=== PATIENT | male | born 1945 | race Caucasian/White ===

== ENCOUNTER → 2017-04-19 | Outpatient (CLI) | payer MEDICARE, MEDICAID ==
[~2017-04-19] MED LIST: ASPIRIN EC81 M1 PO; ATENOLOL 25 MG25 M1 PO; DALIRESP500 MCG PO; FERROUS SULFAT325 M1 PO; GLUCOPHAGE1000 MG PO; IMDUR 30 MG TAB30 M1 PO; LASIX 20 MG TAB20 MG PO; NITROGLYCERIN0.4 MG SL; OXYCONTIN20 M1 PO; PERCOCET 5-3251 EACH PO; PREDNISONE 2.52.5 M1 PO; PRILOSEC40 MG PO; RANITIDINE 150150 M1 PO; SENNA CONCENTR8.6 MG PO; SEREVENT DISKU50 MCG IH; ZOCOR40 MG PO
[2017-04-19 09:59] LABS: ABSOLUTE EOSINOPHILS 0.2 thou/uL (0.0-0.7); ABSOLUTE LYMPHOCYTES 1.9 thou/uL (0.8-5.3); ABSOLUTE MONOCYTES 0.6 thou/uL (0.0-1.2); ABSOLUTE NEUTROPHILS 3.1 thou/uL (1.6-8.1); BASOPHILS 0.7 %; EOSINOPHILS 3.6 %; HEMATOCRIT 34.4 % (42.0-52.0); HEMOGLOBIN 11.4 gm/dL (14.0-18.0); MCH 30.4 pg (26.0-34.0); MCHC 33.2 g/dL (28.0-37.0); MCV 91.6 fL (80.0-100.0); MONOCYTES 9.6 %; MPV 7.6 fl. (7.2-11.1); NUCLEATED RBCS 0 /100WBC; PLATELET COUNT* 202 thou/uL (150-400); POLYS 54.1 %; RBC 3.76 mil/uL (4.50-6.00); RDW-CV 14.1 % (10.5-14.5); WBC 5.8 thou/uL (4.0-11.0)
[2017-04-19 10:08] LABS: CALCIUM 8.8 mg/dL (8.5-10.1); POTASSIUM 4.5 mmol/L (3.5-5.1)
== END ==
LOC: M.CT 09:26
PROVIDERS: Radiology Radiation Oncology
DX: J84.10 Pulmonary fibrosis, unspecified (principal); J98.11 Atelectasis; M81.0 Age-related osteoporosis without current pathological fracture; J43.8 Other emphysema; M25.78 Osteophyte, vertebrae; I65.22 Occlusion and stenosis of left carotid artery; I70.0 Atherosclerosis of aorta; R91.8 Other nonspecific abnormal finding of lung field; E07.9 Disorder of thyroid, unspecified; Z85.89 Personal history of malignant neoplasm of other organs and systems; Z98.890 Other specified postprocedural states; Z85.21 Personal history of malignant neoplasm of larynx

== ENCOUNTER → 2017-04-24 | Outpatient (CLI) | payer MEDICARE, MEDICAID ==
--- NOTE | 2017-05-05 13:19 | ONC ---
[place] [address] RADIATION ONCOLOGY NOTE Name: SAFIA MIKE Room: [facility]#: [id number] Admission: 04/24/17 Attend Phys: Dylan Solano MD Discharge: Date of : 49 Report #: [id number] THIS REPORT FOR: //name// CC: Dylan Conklin MD DATE OF PROCEDURE: 04/24/2017 REFERRING PHYSICIANS: Jennifer العلي MD, Dr. Najera, Dr. Buckley and Gopal Conklin MD [facility] phone is [phone]. PRIMARY SITE AND HISTOPATHOLOGY: The patient received radiation therapy in combination with Erbitux for a stage JERI, T3 N2 M0, squamous cell carcinoma of the supraglottic larynx. The patient completed radiation treatments on 10/10/2012. PROCEDURE: Nasopharyngolaryngoscopy. FINDINGS: On nasopharyngolaryngoscopy without the use of viscous lidocaine since the patient has indicated that he has an ALLERGY TO "BOBO." The nasopharyngolaryngoscope was introduced in the left nostril. There were no visible lesions in the nasopharynx. There were no visible lesions in the posterior pharynx. There were no visible lesions in the supraglottic larynx. The true vocal cords were normally mobile bilaterally without any visible lesions. There was no evidence of head and neck cancer. Thank you for allowing me to participate in the care of this patient. <ELECTRONICALLY SIGNED> By: Dylan Solano MD 05/05/17 1319 1049 [id number] Solano MD /nt
--- NOTE | 2017-05-05 13:37 | ONC ---
[place] [address] RADIATION ONCOLOGY NOTE Name: SAFIA MIKE Room: [facility]#: [id number] Admission: 04/24/17 Attend Phys: Dylan Solano MD Discharge: Date of : 49 Report #: [id number] THIS REPORT FOR: //name// CC: Dylan Buckley MD DATE OF SERVICE: 04/24/2017 REFERRING PHYSICIANS: 1. Gopal Conklin MD 2. Ronald Buckley MD 3. Dr. Najera. 4. Jennifer العلي MD [facility] phone is [phone]. PRIMARY SITE AND HISTOPATHOLOGY: The patient received radiation therapy in combination with Erbitux for a stage JERI, T3 N2 M0, squamous cell carcinoma of the supraglottic larynx. The patient completed radiation treatments on 10/10/2012. INTERVAL NOTE: The patient felt like he has a good appetite. He is eating a regular diet. He eats food such as pizza and hamburgers. He said that initially he was being scheduled for a procedure for his heart valve, but then his alarm mechanic appeared to have changed the plan and he says he is no longer undergoing a procedure for his heart valve. He is taking 2 liters of oxygen via a nasal cannula. MEDICATIONS: Include albuterol, iron, Zocor, Imdur, senna, metformin, 2 liters of oxygen via nasal cannula, atenolol, oxycodone as needed, ranitidine, morphine sulfate. SOCIAL HISTORY: Cigarettes: The patient quit smoking in April 2015. Prior to that, he smoked about a half pack per day for about 54 years. He is not sure if he quit in 2015. He may have quit a little bit earlier like 2014 or 2013. REVIEW OF SYSTEMS: RESPIRATORY: The patient is on chronic oxygen supplementation consisting of 2 liters via a nasal cannula. GASTROINTESTINAL: He has a good appetite. He is eating a regular diet. PHYSICAL EXAMINATION: VITAL SIGNS: The patient weighed 184.2 pounds on 04/24/2017. He was 165.4 [place] [address] RADIATION ONCOLOGY NOTE Name: SAFIA MIKE Room: [facility]#: [id number] Admission: 04/24/17 Attend Phys: Dylan Solano MD Discharge: Date of : 49 Report #: [id number] pounds on 11/19/2016. On 04/24/2017, blood pressure was 109/60, pulse 86, respirations 24. LYMPH NODES: He had no palpable cervical or supraclavicular lymphadenopathy. HEAD, EYES, EARS, NOSE AND THROAT EXAM: Mouth had no suspicious visible lesions or suspicious palpable lesions. On nasopharyngolaryngoscopy without the use of viscous lidocaine, since the patient has indicated in the past that he has an allergy to the "BOBO." The nasopharyngolaryngoscope was introduced in the left nostril. There were no visible lesions in the nasopharynx. There were no visible lesions in the posterior oropharynx. There were no visible lesions in the supraglottic larynx. The true vocal cords were normally mobile bilaterally without any visible lesions. HEART: Had a regular rate and rhythm without murmur. LUNGS: were clear to auscultation. LABORATORY DATA: From 04/19/2017, TSH was elevated at 36.827 on his present dose of 75 mcg of levothyroxine per day. His sodium was 139, potassium 4.5, BUN 16, creatinine 1.0. White blood count was 5.8, hemoglobin 11.4, platelets were 202,000. RADIOLOGIC DATA: He had a neck CT scan on 04/19/2017 which shows osteoporosis of the cervical spine without any visible lesions. He had surgical changes in the glottic and epiglottic regions. He had no evidence of any new mass or adenopathy. There are surgical changes in the right internal carotid artery from the previous procedure. The patient had a chest CT on 04/19/2017 which showed unchanged wedging of the lower thoracic vertebral bodies with no evidence of any lytic lesions. He had unchanged atherosclerotic calcifications involving the aortic valve, the ascending and descending aorta. He also had unchanged calcified granulomas in the mediastinum, in the left and right hilum and he had improvement in the areas of atelectasis and infiltrate that were involving the right middle lobe. ASSESSMENT AND PLAN: 1. History of head and neck cancer- There is no evidence of head and neck cancer at this time. The patient was given a requisition to have a complete blood count and basic metabolic panel checked around July of 2017. He was asked to schedule a follow up appointment to see me afterwards. 2. Hypothyroidism-The patient's TSH was elevated on his present dose of 75 mcg of levothyroxine per day, so that will be increased to 125 mcg of levothyroxine per day and a TSH was ordered in July of 2017 and he was asked to schedule a follow up appointment to see me afterwards. 3. Resolved upper respiratory infection- The patient has no symptoms at this point consistent with upper respiratory infection and his chest CT shows improvement in the infiltrate that he had in the past. [address] [place] [address] RADIATION ONCOLOGY NOTE Name: RODERICK MIKEVIRGINIE Figueroa Room: [facility]#: [id number] Admission: 04/24/17 Attend Phys: Dylan Solano MD Discharge: Date of : 49 Report #: [id number] 4. 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 Buckley with regards to these issues. 5. Dentition- The patient is edentulous. Thank you for allowing me to participate in the care of this patient. <ELECTRONICALLY SIGNED> By: Dylan Solano MD 05/05/17 1337 1102 1927Dylan Solano MD /nt
== END ==
LOC: M.RTH 01:15
DX: Z08 Encounter for follow-up examination after completed treatment for malignant neoplasm (principal); E03.9 Hypothyroidism, unspecified; I65.23 Occlusion and stenosis of bilateral carotid arteries; I70.0 Atherosclerosis of aorta; Z85.89 Personal history of malignant neoplasm of other organs and systems; Z87.891 Personal history of nicotine dependence

== ENCOUNTER → 2017-08-23 | Outpatient (CLI) | payer MEDICARE, MEDICAID ==
--- NOTE | 2017-09-05 22:42 | ONC ---
[place] [address] RADIATION ONCOLOGY NOTE Name: SAFIA MIKE Room: [facility]#: [id number] Admission: 08/23/17 Attend Phys: Dylan Solano MD Discharge: Date of : 49 Report #: [id number] THIS REPORT FOR: //name// CC: Dylan Conklin MD DATE OF PROCEDURE: 08/23/2017 RADIATION ONCOLOGY PROCEDURE NOTE REFERRING PHYSICIANS: Include ammon Najera MD; Jennifer العلي MD and Dr. Buckley. [facility] phone is [phone]. 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 The patient completed radiation treatments on 10/10/2012. PROCEDURE: Nasopharyngolaryngoscopy. FINDINGS: On nasopharyngolaryngoscopy without the use of viscous lidocaine, since the patient indicated he has an ALLERGY TO BOBO, the nasopharyngolaryngoscope was introduced to the left nostril. There were no visible lesions in the nasopharynx and no visible lesions in the posterior pharynx. There were no visible lesions in the supraglottic larynx. The true vocal cords were normally mobile bilaterally without any visible lesions. There was no evidence of head and neck cancer. Thank you for allowing me to participate in the care of this patient. <ELECTRONICALLY SIGNED> By: Dylan Solano MD 09/05/17 2242 1041 1114Dcamden Solano MD /nt
--- NOTE | 2017-09-05 22:53 | ONC ---
[facility] [address] [place] [address] RADIATION ONCOLOGY NOTE Name: SAFIA MIKE Room: [facility]#: [id number] Admission: 08/23/17 Attend Phys: Dylan Solano MD Discharge: Date of : 49 Report #: [id number] THIS REPORT FOR: //name// CC: Dylan Buckley MD DATE OF SERVICE: 08/23/2017 RADIATION ONCOLOGY CONSULTATION NOTE [facility] phone is [phone]. REFERRING PHYSICIANS: Include: 1. Matty Najera M.D. 2. Ronald Buckley M.D. 3. Gopal Conklin M.D. 4. Jennifer العلي M.D. PRIMARY SITE AND HISTOPATHOLOGY: The patient received radiation therapy in combination with Erbitux for a stage JERI, T3 N2 M0, squamous cell carcinoma of the supraglottic larynx. The patient completed radiation treatments on 10/10/2012. INTERVAL NOTE: The patient has a good appetite. He is eating a regular diet. He eats foods such as pizza and hamburgers. He is on 2 liters of oxygen via nasal cannula. He said he was going to a pain control clinic in [place], [place] to try to help him wean off his pain control medications. MEDICATIONS: Include amiodarone 200 mg per day. Daliresp 500 mg per day. Levothyroxine 125 mcg per day. Metformin 1000 mg twice a day. Mucinex 600 mg every 12 hours, oxycodone 15 mg every 6 hours, Extended-release OxyContin 80 mg every 12 hours, omeprazole 40 mg per day, ProAir 2 puffs, tamsulosin, aspirin and a stool softener. SOCIAL HISTORY: The patient quit smoking around 2011. Prior to that, he smoked about a half pack to 1 pack per day for about 54 years. He still chews tobacco. He is edentulous. REVIEW OF SYSTEMS: RESPIRATORY: The patient is on chronic oxygen supplementation, consisting of 2 liters via nasal cannula. GASTROINTESTINAL: He has a good appetite. [place] [address] RADIATION ONCOLOGY NOTE Name: SAFIA MIKE Room: [facility]#: [id number] Admission: 08/23/17 Attend Phys: Dylan Solano MD Discharge: Date of : 49 Report #: [id number] PHYSICAL EXAMINATION: VITAL SIGNS: The patient weighed 177.3 pounds on 08/23/2017. He was 184.2 pounds on 04/24/2017; and on 08/23/2017, blood pressure was 105/73, pulse 76, oxygen saturation was 95%on 2 liters of oxygen via nasal cannula and respirations were 24. LYMPH NODES: He had no palpable cervical or supraclavicular lymphadenopathy. HEAD, EYES, EARS, NOSE AND THROAT EXAMINATION: Mouth had no suspicious visible lesions or suspicious palpable lesions. The patient is edentulous. A nasopharyngolaryngoscopy was performed without the use of viscous lidocaine, as the patient has indicated in the past that he has an ALLERGY TO THE "BOBO", the nasopharyngolaryngoscope was introduced into the left nostril. There were no visible lesions in the nasopharynx and no visible lesions in the posterior oropharynx. There were no visible lesions in the supraglottic larynx. The true vocal cords were normally mobile bilaterally, without any visible lesions. HEART: Had a regular rate and rhythm, without murmur. LUNGS: were clear to auscultation. LABORATORY DATA: From 08/21/2017, BUN was 17, creatinine 0.96. TSH was 3.02, which was within normal limits on his present dose of 125 mcg of levothyroxine. White blood cell count was 8.7, hemoglobin 12.1 and platelets were 282,000. RADIOLOGIC DATA: From 04/19/2017, the patient had a neck CT, which showed osteoporosis in the cervical spine, post-treatment changes in the glottic and epiglottic areas and surgical changes in the right internal carotid artery. Chest CT from 04/19/2017 showed atherosclerosis and unchanged calcified granulomas in the mediastinum of the left and right hilum. ASSESSMENT AND PLAN: 1. History of head and neck cancer- There is no evidence of head and neck cancer at this time. The patient was given a requisition for a basic metabolic panel and complete blood count in about 6 months, to be done around 03/2018 or 04/2018. He was asked to schedule a followup appointment to see me afterwards. 2. History of cigarette smoking- A requisition was written for a screening chest CT without contrast in 04/2018 and the patient was asked to schedule a follow up appointment to see me afterwards. 3. Hypothyroidism- The patient was given a refill for his 125 mcg of levothyroxine and he was given a requisition to have a TSH level checked in 03/2018 or 04/2018 and he was asked to schedule a follow up appointment to see me afterwards. Thank you for allowing me to participate in the care of this patient. <ELECTRONICALLY SIGNED> By: Dylan Solano MD 09/05/17 2253 1120 115MD isacc Spencer
== END | disposition home or self-care (01) ==
LOC: M.RTH 05:40
DX: Z85.828 Personal history of other malignant neoplasm of skin (principal); E03.9 Hypothyroidism, unspecified; J44.9 Chronic obstructive pulmonary disease, unspecified; Z87.891 Personal history of nicotine dependence; Z79.899 Other long term (current) drug therapy; Z88.6 Allergy status to analgesic agent; Z79.82 Long term (current) use of aspirin; Z98.890 Other specified postprocedural states; Z86.73 Personal history of transient ischemic attack (TIA), and cerebral infarction without residual deficits; Z87.19 Personal history of other diseases of the digestive system; Z95.5 Presence of coronary angioplasty implant and graft; Z98.41 Cataract extraction status, right eye; Z98.42 Cataract extraction status, left eye

== ENCOUNTER → 2018-04-25 | Outpatient (CLI) | payer MEDICARE, MEDICAID ==
--- NOTE | ~2018-04-25 | ONC ---
[place] [address] RADIATION ONCOLOGY NOTE Name: SAFIA MIKE Room: [facility]#: [id number] Admission: 04/25/18 Attend Phys: Dylan Solano MD Discharge: Date of : 49 Report #: [id number] THIS REPORT FOR: //name// CC: Dylan العلي MD REFERRING PHYSICIANS: Jennifer العلي MD; Dr. Gopal Conklin; Dr. Matty Najera; Dr. Ronald Buckley. [facility] phone is [phone]. PRIMARY SITE AND HISTOPATHOLOGY: The patient received radiation therapy in combination with Erbitux for stage 4A T3 N2 M0 squamous cell carcinoma of the supraglottic larynx. The patient completed radiation treatments on 10/10/2012. INTERVAL NOTE: The patient continues to have a good appetite. He is eating well. He eats a regular diet and eats foods such as pizza and hamburgers. He is edentulous. He indicated he does have a slightly productive cough. MEDICATIONS: Amiodarone, Daliresp, 125 mcg of levothyroxine per day, metformin, Mucinex. He has discontinued the oxycodone and extended release OxyContin. He continues to take omeprazole, ProAir, tamsulosin, aspirin, stool softener. SOCIAL HISTORY: The patient quit smoking around 2011. Prior to that, he smoked about one-half pack to one pack per day for about 54 years. He has continued to chew tobacco sometimes. He is edentulous. REVIEW OF SYSTEMS: RESPIRATORY: The patient is on chronic supplemental oxygen, which is about 2 liters via nasal cannula. GASTROINTESTINAL: He has a good appetite. He is eating a regular diet. PHYSICAL EXAMINATION: VITAL SIGNS: The patient weighed 182.4 pounds on 04/25/2018, 177.3 pounds on 08/23/2017. On 04/25/2018, blood pressure is 159/73, respirations 24, pulse 74, oxygen saturation 95% on his supplemental oxygen. LYMPH NODES: He had no palpable cervical or supraclavicular lymphadenopathy. HEAD, EYES, EARS, NOSE AND THROAT: Mouth had no suspicious visible lesions or suspicious palpable lesions. On nasopharyngolaryngoscopy without the use of lidocaine since the patient has an allergy to "Angel," the nasopharyngolaryngoscope was introduced into the left nostril. There were no visible lesions in the nasopharynx or posterior oropharynx. There were no visible lesions in the supraglottic larynx. [place] [address] RADIATION ONCOLOGY NOTE Name: MIKERODERICK CASTANONVIRGINIE Figueroa Room: [facility]#: [id number] Admission: 04/25/18 Attend Phys: Dylan Solano MD Discharge: Date of : 49 Report #: [id number] mobile bilaterally without any visible lesions. HEART: Had a regular rate and rhythm without murmur. LUNGS: Clear to auscultation. LABORATORY DATA: From 04/21/2018 at [facility], glucose was 124, BUN 22, creatinine 0.99, sodium 137, potassium 4.4. White blood cell count 10.8, hemoglobin 13.1 and platelets 246,000. RADIOLOGIC DATA: The patient had a screening chest CT performed at [facility] and that was on 04/17/2018. He did have coronary artery calcifications, aortic valve calcifications. No suspicious pulmonary nodules or mass present, just emphysematous changes. ASSESSMENT AND PLAN: 1. History of head and neck cancer. There is no evidence of head and neck cancer at this time. The patient was given a requisition for a complete blood count in 04/2018 and the patient was asked to schedule a followup appointment to see me afterwards. The patient has lab work as well as an appointment with his medical oncologist, Dr. العلي on 09/04/2018. 2. History of cigarette smoking. A requisition was written for screening chest CT without contrast in 04/2019. He was asked to schedule a followup appointment to see me afterwards. 3. Hypothyroidism. The patient was given a refill for his 125 mcg of levothyroxine. Since his TSH was 0.51 on 04/21/2018, which is within normal limits with him taking that dose of levothyroxine and TSH was ordered in 04/2019, he was asked to schedule a followup appointment to see me afterwards. 4. Possible upper respiratory infection. The patient was given a prescription for doxycycline for the upper respiratory infections, about a week's course of that. 5. Coronary artery calcifications. The patient will be referred to his primary care physician to manage that issue. Thank you for allowing me to participate in the care of this patient. By: 1603 2153Dcamden Solano MD /adams
--- NOTE | 2018-04-27 22:57 | ONC ---
[place] [address] RADIATION ONCOLOGY NOTE Name: SAFIA MIKE Room: [facility]#: [id number] Admission: 04/25/18 Attend Phys: Dylan Solano MD Discharge: Date of : 49 Report #: [id number] THIS REPORT FOR: //name// CC: Dylan Conklin DATE OF PROCEDURE: 04/25/2018 REFERRING PHYSICIANS: Dr. Matty Najera, Dr. Buckley, Dr. Jennifer العلي and Dr. Gopal Conklin. [facility] phone is [phone]. PRIMARY SITE AND HISTOPATHOLOGY: The patient received radiation therapy in combination with Erbitux for a stage Mikhail, T3N2M0 squamous cell carcinoma of the supraglottic larynx. The patient completed radiation treatments on 10/10/2012. PROCEDURE: Nasopharyngolaryngoscopy. FINDINGS: On nasopharyngolaryngoscopy without the use of viscous lidocaine, since the patient indicated he has an ALLERGY TO BOBO, the nasopharyngolaryngoscope was introduced into the left nostril. There were no visible lesions in the nasopharynx, no visible lesions in the posterior oropharynx. There were no visible lesions in the supraglottic larynx. The true vocal cords were normally mobile bilaterally without any visible lesions. There was no evidence of head and neck cancer. Thank you for allowing me to participate in the care of this patient. <ELECTRONICALLY SIGNED> By: Dylan Solano MD 04/27/18 2257 1557 2140Dylan Solano MD /nt
== END ==
LOC: M.RTH 09:40
DX: E03.9 Hypothyroidism, unspecified (principal); I25.84 Coronary atherosclerosis due to calcified coronary lesion; Z85.89 Personal history of malignant neoplasm of other organs and systems; Z87.891 Personal history of nicotine dependence

== ENCOUNTER → 2019-05-08 | Outpatient (CLI) | payer MEDICARE, MEDICAID ==
--- NOTE | 2019-05-10 00:13 | ONC ---
[facility] [address] [place] [address] RADIATION ONCOLOGY NOTE Name: SAFIA MIKE Room: [facility]#: [id number] Admission: 05/08/19 Attend Phys: Dylan Solano MD Discharge: Date of : 49 Report #: [id number] THIS REPORT FOR: //name// CC: Dylan Conklin MD DATE OF SERVICE: 05/08/2019 LOCATION: [facility]; phone [phone]. REFERRING PHYSICIANS: Matty Najera M.D.; Dr. Buckley; Jennifer العلي M.D.; Dr. Gopal Conklin M.D. PRIMARY SITE AND HISTOPATHOLOGY: The patient received radiation therapy in combination with Erbitux for a stage JERI, T3 N2 M0, squamous cell carcinoma of the supraglottic larynx. The patient completed radiation treatments on 10/10/2012. PROCEDURE: Nasopharyngolaryngoscopy. FINDINGS: On nasopharyngolaryngoscopy without the use of viscous lidocaine since the patient previously has indicated he has an ALLERGY TO BOBO. The nasopharyngolaryngoscope was introduced into the left nostril. There were no visible lesions in the nasopharynx, no visible lesions in the posterior oropharynx, and no visible lesions in the supraglottic larynx. The true vocal cords were normally mobile bilaterally without any visible lesions. There is no evidence of head and neck cancer. Thank you for allowing me to participate in the care of this patient. <ELECTRONICALLY SIGNED> By: Dylan Solano MD 05/10/19 0013 1620 0021Dcamden Solano MD /nt
--- NOTE | 2019-05-10 00:24 | ONC ---
[place] [address] RADIATION ONCOLOGY NOTE Name: SAFIA MIKE Room: [facility]#: [id number] Admission: 05/08/19 Attend Phys: Dylan Solano MD Discharge: Date of : 49 Report #: [id number] THIS REPORT FOR: //name// CC: Dylan العلي MD DATE OF SERVICE: 05/08/2019 RADIATION ONCOLOGY FOLLOWUP NOTE REFERRING PHYSICIANS: Matty Najera MD; Ronald Buckley MD; Gopal Conklin MD; and Jennifer العلي MD. [facility] phone is [phone]. PRIMARY SITE AND HISTOPATHOLOGY: The patient received radiation therapy in combination with Erbitux for a stage JERI, T3 N2 M0, squamous cell carcinoma of the supraglottic larynx. The patient completed radiation treatments on 10/10/2012. INTERVAL NOTE: The patient has a good appetite. He is eating a regular diet. He eats food such as pizza and hamburgers. He is chronically on 2 liters of oxygen via nasal cannula. He indicated that he will probably be having a heart valve replacement operation in about a month at [facility]. MEDICATIONS: Include albuterol, amiodarone, atorvastatin, Daliresp. He was taking doxycycline. Also takes 100 mcg of levothyroxine per day, metformin, Mucinex, omeprazole, prednisone, Ventolin. SOCIAL HISTORY: The patient quit smoking around 2011. Prior to that time, he smoked about a half pack to 1 pack per day for about 54 years. He also chewed tobacco in the past. He is edentulous. REVIEW OF SYSTEMS: RESPIRATORY: The patient is on chronic oxygen supplementation consisting of 2 liters via the nasal cannula. GASTROINTESTINAL: He has a good appetite and he is eating a regular diet. PHYSICAL EXAMINATION: VITAL SIGNS: The patient weighed 185 pounds on 05/08/2019 and 182.4 pounds on 04/25/2018. On 05/08/2019, blood pressure was 169/95, pulse 100, respirations 24, oxygen saturation 91%. [place] [address] RADIATION ONCOLOGY NOTE Name: SAFIA MIKE Room: [facility]#: [id number] Admission: 05/08/19 Attend Phys: Dylan Solano MD Discharge: Date of : 49 Report #: [id number] LYMPH NODES: The patient had no palpable cervical or supraclavicular lymphadenopathy. HEAD, EYES, EARS, NOSE AND THROAT: Mouth had no suspicious visible lesions or suspicious palpable lesions. Nasopharyngolaryngoscopy without the use of lidocaine since the patient has an ALLERGY TO BOBO, the nasopharyngolaryngoscope was introduced into the left nostril. There were no visible lesions in the nasopharynx or posterior oropharynx. There were no visible lesions in the supraglottic larynx.The true vocal cords were normally mobile bilaterally without any visible lesions. HEART: Had a regular rate and rhythm without murmur. LUNGS: were clear to auscultation. LABORATORY AND DIAGNOSTIC DATA: The patient's TSH on 04/20/2019 was 1.91, which was within normal limits being 0.4-4.0 and again that was done in [facility], that is with the patient taking 100 mcg of levothyroxine per day at this time. He also had a complete blood count at that time and the white blood cell count was 8.5, hemoglobin was 12.5, platelets were 315,000. RADIOLOGIC DATA: The patient had a screening chest CT on 04/20/2019 which showed no worrisome nodules or masses and it showed emphysema. ASSESSMENT AND PLAN: 1. History of head and neck cancer- There is no evidence of head and neck cancer at this time. The patient was given a requisition for a TSH level, complete blood count with differential in 07/2019. He was asked to schedule a followup appointment to see me afterwards. 2. History of cigarette smoking- The patient had a screening chest CT in 04/2019, which did not reveal any nodules. 3. Hypothyroidism- The patient's TSH was within normal limits with him taking 100 mcg of levothyroxine. He was given a refill for 100 mcg of levothyroxine and a TSH was ordered in 07/2019. The patient was asked to schedule a followup appointment to see me afterwards. 4. Cardiac valvular disease -- the patient said he will be having valvular surgery at [facility] probably within the next month. Thank you for allowing me to participate in the care of this patient. <ELECTRONICALLY SIGNED> By: Dylan Solano MD 05/10/19 0024 [id number] Solano MD /nt
== END ==
LOC: M.RTH 04-24 09:45
DX: Z08 Encounter for follow-up examination after completed treatment for malignant neoplasm (principal); E03.9 Hypothyroidism, unspecified; I73.9 Peripheral vascular disease, unspecified; Z85.828 Personal history of other malignant neoplasm of skin; Z87.891 Personal history of nicotine dependence

== ENCOUNTER → 2019-10-23 | Outpatient (CLI) | payer MEDICARE, MEDICAID ==
--- NOTE | 2019-11-01 20:23 | ONC ---
[place] [address] RADIATION ONCOLOGY NOTE Name: SAFIA MIKE Room: [facility]#: [id number] Admission: 10/23/19 Attend Phys: Dylan Solano MD Discharge: Date of : 49 Report #: [id number] THIS REPORT FOR: //name// CC: Dylan العلي MD DATE OF PROCEDURE: 10/23/2019 REFERRING PHYSICIANS: Dr. Buckley; Matty Najera MD; Jennifer العلي MD; and Gopal Conklin MD. LOCATION: [facility], phone is [phone]. PRIMARY SITE AND HISTOPATHOLOGY: The patient received radiation therapy in combination with Erbitux for a stage JERI, T3 N2 M0, squamous cell carcinoma of the supraglottic larynx. The patient completed radiation treatments on 10/10/2012. PROCEDURE: Nasopharyngolaryngoscopy. FINDINGS: On nasopharyngolaryngoscopy without the use of viscous lidocaine since the patient indicated that he has an ALLERGY TO BOBO, the nasopharyngolaryngoscope was introduced in the left nostril. There were no visible lesions in the nasopharynx. There were no visible lesions in the posterior oropharynx. There were no visible lesions in the supraglottic larynx. The true vocal cords were normally mobile bilaterally without any visible lesions. There was no evidence of head and neck cancer. Thank you for allowing me to participate in the care of this patient. <ELECTRONICALLY SIGNED> By: Dylan Solano MD 11/01/192022 [id number] Solano MD /nt
--- NOTE | 2019-11-01 20:33 | ONC ---
[address] [address] RADIATION ONCOLOGY NOTE Name: SAFIA MIKE Room: [facility]#: [id number] Admission: 10/23/19 Attend Phys: Dylan Solano MD Discharge: Date of : 49 Report #: [id number] THIS REPORT FOR: //name// CC: Dylan العلي MD DATE OF SERVICE: 10/23/2019 [facility] RADIATION ONCOLOGY FOLLOWUP NOTE REFERRING PHYSICIANS: Dr. Ronald Buckley, Dr. Gopal Conklin, Dr. Matty Najera, Dr. Jennifer العلي. 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 The patient completed radiation treatments on 10/10/2012. INTERVAL NOTE: The patient ended up having a heart valve replacement in 07/2019. He still is on 2 liters of oxygen via nasal cannula. 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 MEDICATIONS: Amiodarone, Daliresp, metformin, Mucinex, aspirin, levothyroxine, albuterol, atorvastatin. He is also taking a "blood thinner", but does not remember the name of the "blood thinner" at this point. SOCIAL HISTORY: The patient quit smoking around 2011. Prior to that he smoked about one half pack to 1 pack per day for about 54 years. He is edentulous. He also chewed tobacco in the past. REVIEW OF SYSTEMS: RESPIRATORY: The patient is on chronic supplemental oxygen and he is on 2 liters via nasal cannula. GASTROINTESTINAL: He has a good appetite, but he did lose some weight with his heart valve replacement operation. PHYSICAL EXAMINATION: VITAL SIGNS: The patient weighed 177.2 pounds on 10/23/2019 and 185 pounds on 05/08/2019.On 10/23/2019, blood pressure was 111/62, respirations 22, oxygen saturation was 93% with the patient on 2 liters of oxygen, temperature was 97.9 [place] [address] RADIATION ONCOLOGY NOTE Name: MIKERODERICK CASTANONVIRGINIE Figueroa Room: [facility]#: [id number] Admission: 10/23/19 Attend Phys: Dylan Solano MD Discharge: Date of : 49 Report #: [id number] LYMPH NODES: The patient had no palpable cervical or supraclavicular lymphadenopathy. HEAD, EYES, EARS, NOSE AND THROAT: Mouth had no suspicious visible lesions or suspicious palpable lesions. On Nasopharyngolaryngoscopy without the use of lidocaine since the patient has an ALLERGY TO BOBO, the nasopharyngolaryngoscope was introduced in the left nostril. There were no visible lesions in the nasopharynx or posterior oropharynx. There were no visible lesions in the supraglottic larynx. The true vocal cords were normally mobile bilaterally without any visible lesions. HEART: Had a regular rate and rhythm without murmur. LUNGS: were clear to auscultation. LABORATORY DATA: From 10/20/2019, white blood cell count was 8.9, hemoglobin 11.5, platelets 384,000 and his TSH was 0.53, which was within normal limits with him taking 100 mcg of levothyroxine per day. RADIOLOGIC DATA: The patient had some radiologic studies from [facility], he had a CT angiogram of the chest, abdomen and pelvis that did show marked narrowing of the iliac arteries and the patient was referred to a vascular surgeon, but he declined seeing the vascular surgeon because of the valvular operation he was having. He also had an abnormal appearance of the proximal jejunum so he had further GI workup, which consisted of small bowel enteroscopy which was performed on 06/10/2019 and the examined esophagus was normal and examined duodenum was normal.The patient also had a small bowel series on 06/15/2019 which showed the stomach and duodenum were normal and small bowel loops appeared normal. ASSESSMENT AND PLAN: 1. History of head and neck cancer- There is no evidence of head and neck cancer at this time. The patient did have a complete blood count ordered in about 1 year and he was asked to schedule a followup appointment to see me afterwards. 2. History of cigarette smoking- The patient had a screening chest CT on 04/20/2019, which showed no worrisome nodules or masses. There was emphysema and another chest CT will be ordered for 04/2020. 3. Hypothyroidism- The patient's TSH was within normal limits with him taking 100 mcg of levothyroxine per day, so he was given a refill for 100 mcg of levothyroxine and a TSH was ordered in about 1 year and the patient was asked to schedule a followup appointment [place] [address] RADIATION ONCOLOGY NOTE Name: SAFIA MIKE Room: [facility]#: [id number] Admission: 10/23/19 Attend Phys: Dylan Solano MD Discharge: Date of : 49 Report #: [id number] Thank you for allowing me to participate in the care of this patient. <ELECTRONICALLY SIGNED> By: Dylan Solano MD 11/01/19 2033 1139 [id number] Solano MD /nt
== END ==
LOC: M.RTH 07-10 09:00
PROVIDERS: ATTEND Radiology Radiation Oncology
DX: Z08 Encounter for follow-up examination after completed treatment for malignant neoplasm (principal); J43.9 Emphysema, unspecified; Z68.41 Body mass index [BMI] 40.0-44.9, adult; Z92.3 Personal history of irradiation; Z95.2 Presence of prosthetic heart valve; Z88.8 Allergy status to other drugs, medicaments and biological substances; Z79.899 Other long term (current) drug therapy; Z85.89 Personal history of malignant neoplasm of other organs and systems; Z87.891 Personal history of nicotine dependence